=== PATIENT | female | born 1990 | race Caucasian/White ===

== ENCOUNTER 2019-02-18 05:36 | Outpatient (CLI) | payer MEDICAID ==
[~2019-02-18] VITALS: Ht 160 cm; Wt 44.7 kg
[2019-02-18] MEDS ORDERED: PRD10T PO (11:48)
[2019-02-18] MEDS ORDERED: KETO10TA PO (11:48)
== END 2019-02-18 11:49 | disposition home or self-care (01) ==
LOC: PREOP 05:36
PROVIDERS: ATTEND Surgery
DX: Z01.818 Encounter for other preprocedural examination (principal)

== ENCOUNTER 2019-02-22 08:45 | Day surgery (SDC) | payer MEDICAID ==
[~2019-02-22] VITALS: Ht 160 cm; Wt 44.7 kg
[~2019-02-22 08:45] MED LIST: KETO10TA PO; PRD10T PO
[2019-02-22] MEDS ORDERED: LACTATED RINGERS 1,000 ML IV ONE (08:51)
[2019-02-22] MEDS ORDERED: LACTATED RINGERS 1,000 ML IV STA (09:00)
[2019-02-22] MEDS ORDERED: LORA10TA7 PO (09:19)
[2019-02-22] MEDS ORDERED: GUAI-365 PO (09:19)
--- NOTE | 2019-02-22 09:27 | Progress Note-Pre Operative ---
Pre-Operative Progress Note H&P Reviewed The H&P was reviewed, patient examined and no changes noted. Time Seen by Provider: 09:26 Date H&P Reviewed: Feb 22, 2019 Time H&P Reviewed: 09:25 Pre-Operative Diagnosis: screening colonoscopy AARON MARTE DO Feb 22, 2019 09:27
[2019-02-22 09:28] VITALS: BP 90/64
[2019-02-22] MEDS ORDERED: PROPOFOL INJECTION 50 ML IV ONE (09:53)
[2019-02-22] MEDS ORDERED: MIDAZOLAM 2 MG/2 ML (VERSED) VIAL ONE (09:54)
--- NOTE | 2019-02-22 10:53 | Progress Note-Post Operative ---
Post-Operative Progess Note Surgeon (s)/Registered Medical Transcriptionist (s) Surgeon AARON MARTE DO Registered Medical Transcriptionist: none Pre-Operative Diagnosis screening colonoscopy Post-Operative Diagnosis Internal Hemorrhoids Procedure & Operative Findings Date of Procedure 02/22/19 Procedure Performed/Findings Colonoscopy Anesthesia Type IV sedation by SHIRRING MACHINE OPERATOR Estimated Blood Loss Estimated blood loss (mL): scant Specimens/Packing Specimens Removed none AARON MARTE DO Feb 22, 2019 10:53
--- NOTE | 2019-02-22 10:54 | Endoscopy Discharge Instruct ---
Endo Procedure/Findings Findings 1.: Internal Hemorrhoids Discharge Instructions - Activity: You might feel a little sleepy until tomorrow. This is due to the medicine you received to relax you. Until tomorrow, you should: NOT drive a car, operate machinery or power tools. NOT drink any alcoholic beverages. NOT make any important decisions or sign importortant papers. Do not return to work until tomorrow, unless otherwise instructed. Resume previous activities tomorrow. Diet: Start by taking liquids. If you tolerate liquids, advance to solid food. make an appointment for one week Instructions: 1.: Colonscopy in 5 years Notify Physician - If you experience excessive bleeding, unusual abdominal pain, fever, or chest pain, contact your doctor immediately. Follow-Up: - I have received and understand the above instructions and will call my doctor if I have any further questions. Patient Signature Date Nurse Signature Other (Relationship) AARON MARTE DO Feb 22, 2019 10:54
[2019-02-22 11:05] VITALS: BP 106/57
--- NOTE | 2019-02-22 11:31 | Anesthesia-General Post-Op ---
MAC Patient Condition Mental Status/LOC: Same as Preop Cardiovascular: Satisfactory Nausea/Vomiting: Absent Respiratory: Satisfactory Pain: Controlled Complications: Absent Post Op Complications Complications None Follow Up Care/Instructions Patient Instructions None needed. Anesthesiology Discharge Order Discharge Order Patient is doing well, no complaints, stable vital signs, no apparent adverse anesthesia problems. No complications reported per nursing. HERLINDA SUNSHINE CRNA Feb 22, 2019 11:31
[2019-02-22 11:35] VITALS: BP 98/65
[2019-02-22 12:30] VITALS: BP 98/65
--- NOTE | 2019-02-23 02:31 | OPERATIVE REPORT ---
DATE OF SERVICE: PREOPERATIVE DIAGNOSES: 1. Screening colonoscopy. 2. Strong family history of colon cancer and colon polyps. POSTOPERATIVE DIAGNOSIS: Internal hemorrhoids. PROCEDURE: Colonoscopy. SURGEON: Félix Saenz DO. COMMUNITY HEALTH COORDINATOR: None. ANESTHESIA: IV sedation by MANAGER ICU. SPECIMENS: None. BLOOD LOSS: Scant. FLUIDS: Per anesthesia. POSTOPERATIVE CONDITION: Stable. INDICATION FOR PROCEDURE: The patient is a 28-year-old female who has strong family history of colon cancer in her grandparents and her mother had polyps since she was 32. She also states her brother has had a colonoscopy, she needed one for workup. FINDINGS: The patient has some grade II internal hemorrhoids, but no other obvious pathology. PROCEDURE NOTE: After informed consent was obtained, the patient was brought to the endoscopy suite, placed in the bed in the left lateral decubitus position. She administered IV sedation by the MANAGER ICU, then monitored her vitals the entire time, heart rate, blood pressure and pulse ox and the scope was inserted, pushed all the way about 150 cm, able to get to the cecum, took a picture of appendiceal orifice. Pushed into the terminal ileum, took a picture and then slowly withdrew the scope insufflating to look circumferentially at the blount looking at the cecum, up the ascending colon to the hepatic flexure, then down the transverse colon, splenic flexure, into the descending colon and down the sigmoid and finally into the rectum, retroflexed the rectal vault, saw some grade II internal hemorrhoids, took a picture of this and then removed the scope. The patient tolerated the procedure, recovered in the endoscopy suite. Job ID: [id number] DocumentID: [id number] Dictated Date: 02/22/2019 18:48:16 Planer Operator Date: 02/23/2019 02:31:06 Dictated By: FÉLIX SAENZ DO
== END 2019-02-22 12:30 | disposition home or self-care (01) ==
LOC: ENDO 08:45
PROVIDERS: ATTEND Surgery
DX: Z12.11 Encounter for screening for malignant neoplasm of colon (principal); Z80.0 Family history of malignant neoplasm of digestive organs; Z83.71 Family history of colonic polyps; Z88.6 Allergy status to analgesic agent; F41.9 Anxiety disorder, unspecified
CPT/HCPCS: 84703

== ENCOUNTER → 2019-03-10 | Outpatient (CLI) | payer MEDICAID ==
[~2019-03-10] MED LIST changes: +GUAI-365 PO; +LORA10TA7 PO
[2019-03-10 16:35] VITALS: BP 103/56
--- NOTE | 2019-03-10 16:35 | Cardiology Stress Test Report ---
Stress Test Report Date of Procedure/Referring: Date of Procedure: March 10, 2019 PCP Ravi Monique MD Admitting Physician Yani Yepez MD Indications: Chest pain Baseline Heart Rate: 75 Baseline Blood Pressure: Blood Pressure Systolic: 103 Blood Pressure Diastolic: 56 Baseline EKG: Baseline EKG: normal sinus rhythm Summary/Conclusion: Summary: In summary, the patient started exercising with a baseline heart rate, blood pressure and EKG mentioned above Patient was able to exercise for a total of 9 minutes on Kirby protocol, 10.5 METs Maximum heart rate 169 Maximum blood pressure 150/73 Stress EKG Minimal nondiagnostic changes Recovery EKG Return to baseline Conclusion: 1. Good exercise tolerance for a total of 9 minutes on Kirby protocol, 10.5 METs, achieving 87 percent of maximum expected heart rate 2. Minimal nondiagnostic EKG changes with exercise returned to baseline during recovery 3. No arrhythmia was noted RAVI MONIQUE MD March 10, 2019 16:35
== END ==
LOC: CARD 09:13
PROVIDERS: ATTEND Internal Medicine Cardiovascular Disease
DX: R07.89 Other chest pain (principal); R94.31 Abnormal electrocardiogram [ECG] [EKG]
CPT/HCPCS: 93017; 93306

== ENCOUNTER 2021-09-06 16:23 | Emergency (ER) | payer MEDICAID ==
[~2021-09-06] VITALS: Ht 62 cm; Wt 52.2 kg
[2021-09-06 16:30] VITALS: BP 109/75
[2021-09-06] MEDS ORDERED: NS IV 1000 ML 1,000 ML IV SCH (16:45)
[2021-09-06] MEDS ORDERED: KETOROLAC 30 MG/ML VIAL IVP ONE (16:45)
--- NOTE | 2021-09-06 16:45 | ED Abdominal Pain ---
General Stated Complaint: CHEST PAIN, STOMACH PAIN Source of Information: Patient Exam Limitations: No Limitations (LIZZIE CLIFTON) History of Present Illness Date Seen by Provider: Sep 06, 2021 Time Seen by Provider: 16:30 Initial Comments Patient presents the ER by private conveyance with chief complaint of a sudden onset of 10 out of 10 epigastric abdominal pain radiating up into her substernal lower midline chest. She says she was just waiting to potato picker her kids from school approximately 1 hour prior to arrival when this started. She says is now down to about a 3 or 4 out of 10. She describes it as burning and cramping. She took some Tums which did not help her pain. She does not have a history of pancreatitis or gastritis. She did have an EGD in 2017 which did not reveal anything. She has had her gallbladder as well as her appendix out in the past. She has had 3 C-sections and her tubes are tied. She is not having any dysuria fevers chills. She had some nausea but not in the right the moment. She does not have any other significant medical history nor does she take any routine medicines. She says her mom has a history of pancreatitis after a stent was placed for cholecystectomy. Echocardiogram by Dr. Monique from 2019 demonstrates EF of 55 to 65%. She had a stress test in [address] Monique demonstrating minimal nondiagnostic EKG changes with exercise which returned to baseline during recovery. Good exercise tolerance. (LIZZIE CLIFTON) Allergies and Home Medications Allergies Coded Allergies: tramadol (Verified Allergy, Unknown, Nausea, 02/18/19) Patient Home Medication List Home Medication List Reviewed: Yes (LIZZIE CLIFTON) Guaifenesin/Pseudoephedrne HCl (Mucinex D ER 1,200-120 mg Tab) 1 Each Tab.er.12h, 1 EACH PO DAILY, (Reported) Entered as Reported by: AMANDA STEWART on 02/22/19918 Ketorolac Tromethamine (Ketorolac Tromethamine) 10 Mg Tablet, 10 MG PO Q6H, (Reported) Entered as Reported by: SIERRA PAREKH on 02/18/19 1148 Loratadine (Loratadine) 10 Mg Tablet, 10 MG PO DAILY, (Reported) Entered as Reported by: AMANDA STEWART on 02/22/19918 Prednisone (Prednisone) 10 Mg Tab, 10 MG PO DAILY, (Reported) Entered as Reported by: SIERRA PAREKH on 02/18/19 1148 Review of Systems Review of Systems Constitutional: No chills, No diaphoresis EENTM: No Blurred Vision, No Double Vision Respiratory: Denies Cough, Denies Shortness of Air Cardiovascular: See HPI, Chest Pain; Denies Lightheadedness Gastrointestinal: See HPI, Abdominal Pain; Denies Constipated, Denies Diarrhea; Nausea; Denies Vomiting Genitourinary: Denies Burning, Denies Discharge Musculoskeletal: No back pain, No joint pain Skin: No pruritus, No rash Psychiatric/Neurological: Denies Headache, Denies Numbness (LIZZIE CLIFTON) All Other Systems Reviewed Negative Unless Noted: Yes (LIZZIE CLIFTON) Past Ohuuanj-Tvqixd-Detgmf Hx Patient Social History Tobacco Use?: No Use of E-Cig and/or Vaping dev: No Substance use?: No Alcohol Use?: Yes Alcohol type: Beer Alcohol Frequency: Rarely (LIZZIE CLIFTON) Seasonal Allergies Seasonal Allergies: No (LIZZIE CLIFTON) Past Medical History Surgeries: Yes (c/s x3) Appendectomy, Gallbladder, Tubal Ligation Respiratory: No Cardiac: No Neurological: No Genitourinary: No Gastrointestinal: Yes Musculoskeletal: No Endocrine: No HEENT: No Cancer: No Psychosocial: No Integumentary: No Blood Disorders: No (LIZZIE CLIFTON) Physical Exam Vital Signs Vital Signs - First Documented 09/06/21 16:30 Temp 36.6 Pulse 75 Resp 20 B/P (MAP) 109/75 (86) Pulse Ox 100 O2 Delivery Room Air (ADELA ONOFRE MD) Vital Signs Capillary Refill : (LIZZIE CLIFTON) Height/Weight/BMI Height: 5'3.00" Weight: 98lbs. 9.0oz. 44.819148po; 17.5 BMI Method: General Appearance: WD/WN, mild distress HEENT: PERRL/EOMI, pharynx normal Neck: full range of motion, normal inspection Respiratory: no respiratory distress, no accessory muscle use Cardiovascular: normal peripheral pulses, regular rate, rhythm, no edema Peripheral Pulses: 2+ Radial Pulses (R), 2+ Radial Pulses (L) Gastrointestinal: normal bowel sounds, soft, no organomegaly, tenderness (Left upper quadrant and epigastric region tender to palpation) Extremities: normal inspection, normal capillary refill Neurologic/Psychiatric: alert, normal mood/affect, oriented x 3 Skin: normal color, warm/dry (LIZZIE CLIFTON J) Progress/Results/Core Measures Results/Orders Lab Results Laboratory Tests Test 09/06/21 16:42 09/06/21 16:58 Range/Units White Blood Count 5.8 4.3-11.0 10^3/uL Red Blood Count 4.34 3.80-5.11 10^6/uL Hemoglobin 13.5 11.5-16.0 g/dL Hematocrit 40 35-52 % Mean Corpuscular Volume 93 80-99 fL Mean Corpuscular Hemoglobin 31 25-34 pg Mean Corpuscular Hemoglobin Concent 33 32-36 g/dL Red Cell Distribution Width 12.7 10.0-14.5 % Platelet Count 234 130-400 10^3/uL Mean Platelet Volume 9.4 9.0-12.2 fL Immature Granulocyte % (Auto) 0 % Neutrophils (%) (Auto) 55 42-75 % Lymphocytes (%) (Auto) 34 12-44 % Monocytes (%) (Auto) 9 0-12 % Eosinophils (%) (Auto) 2 0-10 % Basophils (%) (Auto) 0 0-10 % Neutrophils # (Auto) 3.2 1.8-7.8 10^3/uL Lymphocytes # (Auto) 2.0 1.0-4.0 10^3/uL Monocytes # (Auto) 0.5 0.0-1.0 10^3/uL Eosinophils # (Auto) 0.1 0.0-0.3 10^3/uL Basophils # (Auto) 0.0 0.0-0.1 10^3/uL Immature Granulocyte # (Auto) 0.0 0.0-0.1 10^3/uL Sodium Level 139 135-145 MMOL/L Potassium Level 3.9 3.6-5.0 MMOL/L Chloride Level 107 98-107 MMOL/L Carbon Dioxide Level 21 21-32 MMOL/L Anion Gap 11 5-14 MMOL/L Blood Urea Nitrogen 9 7-18 MG/DL Creatinine 0.85 0.60-1.30 MG/DL Estimat Glomerular Filtration Rate 79 BUN/Creatinine Ratio 11 Glucose Level 92 70-105 MG/DL Calcium Level 8.9 8.5-10.1 MG/DL Corrected Calcium 8.7 8.5-10.1 MG/DL Total Bilirubin 0.5 0.1-1.0 MG/DL Aspartate Amino Transf (AST/SGOT) 22 5-34 U/L Alanine Aminotransferase (ALT/SGPT) 13 0-55 U/L Alkaline Phosphatase 71 40-136 U/L Troponin I < 0.028 <0.028 NG/ML C-Reactive Protein High Sensitivity 0.10 0.00-0.50 MG/DL Total Protein 7.4 6.4-8.2 GM/DL Albumin 4.3 3.2-4.5 GM/DL Lipase 14 8-78 U/L Urine Color YELLOW Urine Clarity CLEAR Urine pH 6.0 5-9 Urine Specific [place] >=1.030 1.016-1.022 Urine Protein NEGATIVE NEGATIVE Urine Glucose (UA) NEGATIVE NEGATIVE Urine Ketones NEGATIVE NEGATIVE Urine Nitrite NEGATIVE NEGATIVE Urine Bilirubin NEGATIVE NEGATIVE Urine Urobilinogen 0.2 < = 1.0 MG/DL Urine Leukocyte Esterase NEGATIVE NEGATIVE Urine RBC (Auto) NEGATIVE NEGATIVE Urine RBC NONE /HPF Urine WBC 0-2 /HPF Urine Crystals PRESENT H /LPF Urine Amorphous Sediment RARE [place]TONIA URATES H /LPF Urine Bacteria TRACE /HPF Urine Casts NONE /LPF Urine Mucus MODERATE H /LPF Urine Culture Indicated NO (ADELA ONOFRE MD) My Orders Orders - ADELA ONOFRE MD Metoclopramide Injection (Reglan Injecti (09/06/21 19:15) Diphenhydramine Injection (Benadryl Inje (09/06/21 19:15) Pantoprazole Injection (Protonix Injecti (09/06/21 19:15) Dicyclomine Injection (Bentyl Injection) (09/06/21 19:10) Ns (Ivpb) (Sodium Chloride 0.9% Ivpb Bag (09/06/21 19:23) (ADELA ONOFRE MD) Medications Given in ED Current Medications Medications Dose Ordered Sig/Lia Route Start Time Stop Time Status Last Admin Dose Admin Al Hydrox/Mg Hydrox/Simethicone 30 ml ONCE ONCE PO 09/06/21 18:15 09/06/21 18:16 DC 09/06/21 18:33 30 ML Diphenhydramine HCl 25 mg ONCE ONCE IV 09/06/21 19:15 09/06/21 19:16 DC 09/06/21 19:30 25 MG Iohexol 100 ml ONCE ONCE IV 09/06/21 17:15 09/06/21 17:16 DC 09/06/21 17:15 66 ML Ketorolac Tromethamine 30 mg ONCE ONCE IVP 09/06/21 16:45 09/06/21 16:46 DC 09/06/21 16:55 30 MG Lidocaine HCl 15 ml ONCE ONCE PO 09/06/21 18:15 09/06/21 18:16 DC 09/06/21 18:33 15 ML Metoclopramide HCl 10 mg ONCE ONCE IVP 09/06/21 19:15 09/06/21 19:16 DC 09/06/21 19:30 10 MG Pantoprazole 40 mg ONCE ONCE IV 09/06/21 19:15 09/06/21 19:16 DC 09/06/21 19:30 40 MG Sodium Chloride 50 ml @ [facility] ONCE .ROUTE 09/06/21 19:23 09/06/21 19:26 DC 09/06/21 19:30 100 MLS/HR Sodium Chloride 100 ml ONCE ONCE IV 09/06/21 17:15 09/06/21 17:16 DC 09/06/21 17:15 80 ML (ADELA ONOFRE MD) Vital Signs/I&O 09/06/21 16:30 Temp 36.6 Pulse 75 Resp 20 B/P (MAP) 109/75 (86) Pulse Ox 100 O2 Delivery Room Air (ADELA ONOFRE MD) Progress Progress Note #1: Time: 16:45 Progress Note Toradol for pain get some labs including a lipase urine bedside and obtain a CT of her abdomen pelvis. Suspect pancreatitis less likely gastritis/gastroduodenitis, Meckel's diverticula, PUD, internal herniation etc. If Toradol does not help we may try a GI cocktail. Aseptic vital signs. Chest x-ray, EKG. Progress Note #2: Time: 18:16 Progress Note Patient really did not receive any improvement in her pain however it remains about a 3 out of 10. She is not having any nausea. Plan to give her a GI cocktail. She says in the past it has helped. When we done further into her history this is been going on for several years intermittently. This was the worst episode she is ever had. She plans to have an EGD at [place] but she does not member who or who ordered it. She then relates that she was drinking some fluid and they took some x-rays. I suspect she had a swallow study of some sort. It would probably behoove her to follow-up with a rib matcher and fitter to consider EGD or appropriate work-up. Perhaps she has a sliding hiatal hernia or other spontaneously resolving finding causing severe epigastric pain radiating up into her chest. No evidence of aortic aneurysm in the visualized portions of the abdomen. She is not a smoker nor does she have any risk for this above population. We will suggest you follow-up with her primary care doctor to pursue a gastroenterology consult if the GI cocktail seems to help her symptoms. We will pass the case over to our capable colleague Dr. Onofre. (LIZZIE CLIFTON) Progress Note #1: Time: 19:11 Progress Note Patient care assumed from Dr. Clifton at shift change with results of "GI cocktail" pending the patient. Arnold her nurse advised me shortly after he gave the GI cocktail that the patient's pain became much more intensified. She started crying and writhing around. I went in to reassess the patient and found her quite distraught holding her abdomen rolling around on the bed. She has a nice soft belly with voluntary guarding. Normoactive bowel sounds. I do not suspect acute perforation. I reviewed all of her labs and CT and chest x-ray. Her work-up has been normal. I advised the patient that she likely needs EGD to further evaluate for pathology in the stomach/intestines. Patient advised me that she had a scope in 2017 in [facility] but she cannot recall what the results were. Her significant other at the bedside states that normally "when this happens" he gives her a few times to chew up and it will make it a little bit better. I am going to give the patient some Reglan and Benadryl, IV Protonix and some Bentyl. Will reevaluate after these meds. Progress Note #2: Time: 20:22 Progress Note Patient states symptoms have all but resolved. She is comfortable with going home. We will send prescriptions for Protonix and Zofran to her pharmacy. Patient is given good return precautions. All questions are sought and answered. Patient is stable for discharge (ADELA ONOFRE MD) Initial ECG Impression Date: Sep 06, 2021 Initial ECG Impression Time: 16:32 Initial ECG Rate: 66 Initial ECG Rhythm: Normal Sinus Initial ECG Intervals: Normal Initial ECG Impression: Normal Initial ECG Comparisson: No Previous ECG Available Comment Normal sinus rhythm without clinically relevant ST elevation or depression (LIZZIE CLIFTON) Diagnostic Imaging Diagonstic Imaging: Xray Plain Films/CT/US/NM/MRI: chest Comments [facility] [place] NAME: DARLENE RGEER [facility] REC#: [id number] PT STATUS: REG ER : 1990 PHYSICIAN: LIZZIE CLIFTON MD ADMIT DATE: 09/06/21/ER Signed Date of Exam:09/06/21 CHEST 1 VIEW, AP/PA ONLY INDICATION: Chest pain COMPARISON: None available TECHNIQUE: Single frontal radiograph of the chest dated 09/06/2021 FINDINGS: The cardiac silhouette is within normal limits in size. No significant pulmonary vascular congestion. The lungs are clear. No pleural effusion. No pneumothorax. No acute osseous abnormality. IMPRESSION: No acute cardiopulmonary abnormality. Dictated by: Dictated on workstation # [id number] Dict: 09/06/21 1718 Trans: 09/06/21 173 [id number] [id number] Interpreted by: MARICRUZ TRAN MD Electronically signed by: MARICRUZ TRAN MD 09/06/21 1733 Reviewed: Reviewed by Nh Diagonstic Imaging: CT Plain Films/CT/US/NM/MRI: abdomen, pelvis Comments [facility] [place] NAME: DARLENE GREER [facility] REC#: [id number] PT STATUS: REG ER : 1990 PHYSICIAN: LIZZIE CLIFTON MD ADMIT DATE: 09/06/21/ER Signed Date of Exam:09/06/21 CT ABDOMEN/PELVIS W PROCEDURE: CT abdomen and pelvis with contrast. TECHNIQUE: Multiple contiguous axial images were obtained through the abdomen and pelvis after administration of intravenous contrast. Auto Exposure Controls were utilized during the CT exam to meet ALARA standards for radiation dose reduction. All CT scans use one or more of the following dose optimizing techniques: Automated exposure control, MA and/or KvP adjustment based on patient size and exam type or iterative reconstruction. INDICATION: Epigastric pain. COMPARISON: Radiograph of the chest from same date. FINDINGS: The visualized lung bases are clear. No significant hiatal hernia. Cholecystectomy. The liver and spleen are unremarkable. The adrenal glands are unremarkable. The pancreas is unremarkable. The kidneys are unremarkable. No aneurysmal dilatation of the abdominal aorta. The urinary bladder is decompressed, therefore not well evaluated. The uterus is retroverted. Otherwise, the uterus is unremarkable. Small peripherally enhancing hypodensity within the left adnexa is felt to relate to an involuting left ovarian cyst. The right adnexa are unremarkable. The appendix is not definitely identified, though there are no secondary signs of acute appendicitis. No bowel obstruction or pneumatosis. No significant adenopathy or free air. Trace free fluid within the lower pelvis. Transitional lumbosacral vertebral body is present. No acute osseous abnormality. IMPRESSION: Involuting cyst within the left ovary with associated trace free fluid within the lower pelvis. Retroverted uterus. Cholecystectomy. The appendix is not definitely identified, though there are no secondary signs of acute appendicitis identified on this exam. Dictated by: Dictated on workstation # [id number] Dict: 09/06/21 172 Trans: 09/06/21 1734 [id number] Interpreted by: MARICRUZ TRAN MD Electronically signed by: MARICRUZ TRAN MD 09/06/21 1734 Reviewed: Reviewed by Me (LIZZIE CLIFTON) Transfer of Care Time: 18:21 Care transferred to: Dr. Onofre (LIZZIE CLIFTON) Departure Impression Primary Impression: Epigastric abdominal pain Disposition: 01 HOME, SELF-CARE Condition: Stable Departure-Patient Inst. Decision time for Depature: 20:22 (ADELA ONOFRE MD) Referrals: ARIANNA HUBBARD MD (PCP/Family) Primary Care Physician Patient Instructions: Gastritis ED Add. Discharge Instructions: [place] diet for the next 24 to 48 hours. Drink plenty of fluids to stay well-hydrated. Avoid ibuprofen products, take Tylenol as needed for pain. Protonix and Zofran, prescriptions for acid reduction and nausea to your local pharmacy. Come back to the emergency department for worsening pain, fever with vomiting or any other emergent concerning symptoms. Scripts Ondansetron (Ondansetron Odt) 4 Mg Tab.rapdis 4 MG PO Q8H PRN for nausea, #20 TAB Prov: ADELA ONOFRE MD 09/06/21 Pantoprazole Sodium (Protonix) 20 Mg Tablet.dr 20 MG PO DAILY, #30 TAB Prov: ADELA ONOFRE MD 09/06/21 Copy Copies To 1: ARIANNA HUBBARD MD, TITUS J Sep 06, 2021 16:45 ADELA ONOFRE MD Sep 06, 2021 19:13
[2021-09-06 16:46] LABS: BASOPHILS % (AUTO) 0 % (0-10); EOSINOPHILS # (AUTO) 0.1 10^3/uL (0.0-0.3); EOSINOPHILS % (AUTO) 2 % (0-10); HEMATOCRIT 40 % (35-52); HEMOGLOBIN 13.5 g/dL (11.5-16.0); LYMPHOCYTES % (AUTO) 34 % (12-44); MEAN CORPUSCULAR HEMOGLOBIN 31 pg (25-34); MEAN CORPUSCULAR HGB CONC 33 g/dL (32-36); MEAN CORPUSCULAR VOLUME 93 fL (80-99); MEAN PLATELET VOLUME 9.4 fL (9.0-12.2); MONOCYTES # (AUTO) 0.5 10^3/uL (0.0-1.0); MONOCYTES % (AUTO) 9 % (0-12); NEUTROPHILS # (AUTO) 3.2 10^3/uL (1.8-7.8); NEUTROPHILS % (AUTO) 55 % (42-75); PLATELET COUNT 234 10^3/uL (130-400); WHITE BLOOD COUNT 5.8 10^3/uL (4.3-11.0)
[2021-09-06 17:01] LABS: BILIRUBIN,URINE NEGATIVE (NEGATIVE); CLARITY,URINE CLEAR; COLOR,URINE YELLOW; GLUCOSE, URINE (UA) NEGATIVE (NEGATIVE); KETONES,URINE NEGATIVE (NEGATIVE); LEUKOCYTE ESTERASE ,URINE NEGATIVE (NEGATIVE); NITRITE,URINE NEGATIVE (NEGATIVE); PROTEIN,URINE NEGATIVE (NEGATIVE)
[2021-09-06 17:04] LABS: ALANINE AMINOTRANSFERASE 13 U/L (0-55); ALBUMIN 4.3 GM/DL (3.2-4.5); ALKALINE PHOSPHATASE 71 U/L (40-136); BILIRUBIN,TOTAL 0.5 MG/DL (0.1-1.0); BUN/CREATININE RATIO 11; CALCIUM 8.9 MG/DL (8.5-10.1); CARBON DIOXIDE 21 MMOL/L (21-32); CHLORIDE 107 MMOL/L (98-107); CREATININE SERUM 0.85 MG/DL (0.60-1.30); GFR ESTIMATED 79; GLUCOSE 92 MG/DL (70-105); LIPASE 14 U/L (8-78); POTASSIUM 3.9 MMOL/L (3.6-5.0); SODIUM 139 MMOL/L (135-145); TOTAL PROTEIN 7.4 GM/DL (6.4-8.2)
[2021-09-06] MEDS ORDERED: HOLD METFORMIN - RECEIVED CONTRAST 20 ML VIAL IV SCH (17:15)
[2021-09-06] MEDS ORDERED: IOHEXOL 350 MG/ML 100 ML (OMNIPAQUE 350) VIAL IV ONE (17:15)
[2021-09-06] MEDS ORDERED: NS 100 ML (IVPB) BAG IV ONE (17:15)
--- NOTE | 2021-09-06 17:20 | Diagnostic Imaging Report ---
INDICATION: Chest pain COMPARISON: None available TECHNIQUE: Single frontal radiograph of the chest dated 09/06/2021 FINDINGS: The cardiac silhouette is within normal limits in size. No significant pulmonary vascular congestion. The lungs are clear. No pleural effusion. No pneumothorax. No acute osseous abnormality. IMPRESSION: No acute cardiopulmonary abnormality. Dictated by: Dictated on workstation # [id number]
[2021-09-06 17:22] LABS: AMORPHOUS SEDIMENT,UR RARE AMOR URATES /LPF; BACTERIA,URINE TRACE /HPF; WBC,URINE 0-2 /HPF
--- NOTE | 2021-09-06 17:29 | Diagnostic Imaging Report ---
PROCEDURE: CT abdomen and pelvis with contrast. TECHNIQUE: Multiple contiguous axial images were obtained through the abdomen and pelvis after administration of intravenous contrast. Auto Exposure Controls were utilized during the CT exam to meet ALARA standards for radiation dose reduction. All CT scans use one or more of the following dose optimizing techniques: Automated exposure control, MA and/or KvP adjustment based on patient size and exam type or iterative reconstruction. INDICATION: Epigastric pain. COMPARISON: Radiograph of the chest from same date. FINDINGS: The visualized lung bases are clear. No significant hiatal hernia. Cholecystectomy. The liver and spleen are unremarkable. The adrenal glands are unremarkable. The pancreas is unremarkable. The kidneys are unremarkable. No aneurysmal dilatation of the abdominal aorta. The urinary bladder is decompressed, therefore not well evaluated. The uterus is retroverted. Otherwise, the uterus is unremarkable. Small peripherally enhancing hypodensity within the left adnexa is felt to relate to an involuting left ovarian cyst. The right adnexa are unremarkable. The appendix is not definitely identified, though there are no secondary signs of acute appendicitis. No bowel obstruction or pneumatosis. No significant adenopathy or free air. Trace free fluid within the lower pelvis. Transitional lumbosacral vertebral body is present. No acute osseous abnormality. IMPRESSION: Involuting cyst within the left ovary with associated trace free fluid within the lower pelvis. Retroverted uterus. Cholecystectomy. The appendix is not definitely identified, though there are no secondary signs of acute appendicitis identified on this exam. Dictated by: Dictated on workstation # [id number]
[2021-09-06] MEDS ORDERED: ANTACID SUSP 30 ML UDC (MYLANTA) PO ONE (18:15)
[2021-09-06] MEDS ORDERED: LIDOCAINE 2% VISCOUS 15 ML UDC PO ONE (18:15)
[2021-09-06] MEDS ORDERED: FAMOTIDINE 20 MG (PEPCID) TABLET PO STA (18:15)
[2021-09-06] MEDS ORDERED: DICYCLOMINE 10 MG/ML (BENTYL) 2 ML AMP IM STA (19:10)
[2021-09-06] MEDS ORDERED: diphenhydrAMINE 50 MG/ML INJ (BENADRYL) IV ONE (19:15)
[2021-09-06] MEDS ORDERED: PANTOPRAZOLE 40 MG (PROTONIX) VIAL IV ONE (19:15)
[2021-09-06] MEDS ORDERED: METOCLOPRAMIDE INJ 10 MG/2 ML (REGLAN) IVP ONE (19:15)
[2021-09-06] MEDS ORDERED: NS (IVPB) 50 ML ONE (19:23)
[2021-09-06] MEDS ORDERED: ONDA4TAB11 PO (20:24)
[2021-09-06] MEDS ORDERED: PANT20TA2 PO (20:24)
== END 2021-09-06 20:39 | disposition home or self-care (01) ==
LOC: EDUNIT# 16:23 → ER 16:25
DX: R10.13 Epigastric pain (principal); Z79.52 Long term (current) use of systemic steroids
CPT/HCPCS: 36415; 71045; 74177; 80053; 81000; 83690; 84484; 84703; 85025; 86141; 93005